=== PATIENT | male | born 1945 | race Caucasian/White ===

== ENCOUNTER 2016-07-02 06:24 | Emergency (ER) | payer MEDICARE, MEDICAID ==
--- NOTE | 2016-07-03 12:40 | ER ---
ADMIT: 07/02/2016 RM/LOC: ER [facility] MR#: [id number] [address] [id number] ROSEMARIE LEWIS [address] [address] Emergency Room Report SEX: M AGE: 71 : 1945 DATE: 07/02/2016 ADDENDUM: A 71-year-old white male, multiple health problems but the main one is his Parkinson's and he is unstable walking. He usually lives at an assisted living with his . His is actually upstairs in the hospital, he is staying with her because she has end-stage cancer and has recently had a perforated bowel that they were treating her for. He got up in the room and had fallen. He usually has a walker, I do not think he was using it upstairs. At this time, he has mainly just a small contusion, right shoulder. No other major injury, he is able to ambulate. He obviously has parkinsonian gait and tremor that slows him. He was discharged with stress to use his walker and follow up as needed. Malachi Siddiqi MD/ tg JOB #: [id number] CC: Thompson Damon MD, Attending Physician Elvira Moore MD, Family Physician
== END 2016-07-02 07:55 | disposition home or self-care (01) ==
LOC: ER 06:24
DX: S40.011A Contusion of right shoulder, initial encounter (principal); G20 Parkinson's disease; I10 Essential (primary) hypertension; E11.9 Type 2 diabetes mellitus without complications; F32.9 Major depressive disorder, single episode, unspecified; Z88.8 Allergy status to other drugs, medicaments and biological substances; Z87.891 Personal history of nicotine dependence; W19.XXXA Unspecified fall, initial encounter; Y92.009 Unspecified place in unspecified non-institutional (private) residence as the place of occurrence of the external cause